=== PATIENT | male | born 1995 | race Caucasian/White ===

== ENCOUNTER 2017-07-18 15:14 | Emergency (ER) | payer OTHER ==
[~2017-07-18] VITALS: Ht 172.7 cm; Wt 51.8 kg
[2017-07-18 15:17] VITALS: TEMP 37.4; Ht 172.7 cm; Wt 51.8 kg
[2017-07-18] MEDS ORDERED: KETOROLAC TROMETHAMINE 30 MG/ML VIAL IV STA (15:38)
[2017-07-18 15:41] VITALS: O2SAT 98
--- NOTE | 2017-07-18 16:05 | DIAGNOSTIC IMAGING REPORT ---
CHEST ONE VIEW PORTABLE CLINICAL HISTORY: 21 years-old Male presenting with chest pain. TECHNIQUE: Portable upright AP view of the chest was obtained. COMPARISON: None. FINDINGS: Cardiomediastinal silhouette normal. Lungs and pleural spaces clear. Osseous structures normal. Upper abdomen normal. IMPRESSION: 1. No acute cardiopulmonary disease. Electronically signed by: Jean-Claude Collins M.D. 07/18/2017 4:04 PM Dictated Date/Time: 07/18/2017 4:03 PM
[2017-07-18 16:16] LABS: BASO % 0.1 %; BASO ABS # 0.01 K/uL (0-0.2); COMPLETE YES; EOS % 0.5 %; IG% 0.2 %; LYMPH % 9.6 %; LYMPH ABS # 0.93 K/uL (1.2-3.4); MEAN CELL VOLUME 86.3 fL (80-100); MEAN CORPUSCULAR HEMOGLOBIN 29.9 pg (25-34); MEAN CORPUSCULAR HGB CONC 34.6 g/dl (32-36); MEAN PLATELET VOLUME 9.9 fL (7.4-10.4); MONO % 8.9 %; NEUT % 80.7 %; PLATELET COUNT 170 K/uL (130-400); RED BLOOD COUNT 5.56 M/uL (4.7-6.1); WHITE BLOOD COUNT 9.69 K/uL (4.8-10.8)
[2017-07-18 16:37] LABS: ALT/SGPT 19 U/L (12-78); AST/SGOT 10 U/L (15-37); BLOOD UREA NITROGEN 13 mg/dl (7-18); BUN/CREATININE RATIO 14.7 (10-20); CALCIUM 9.3 mg/dl (8.5-10.1); CARBON DIOXIDE 28 mmol/L (21-32); CHLORIDE 100 mmol/L (98-107); CREATININE 0.86 mg/dl (0.60-1.40); GLUCOSE 101 mg/dl (70-99); SODIUM 134 mmol/L (136-145)
[2017-07-18 16:42] LABS: ALKALINE PHOSPHATASE 94 U/L (45-117)
[2017-07-18 17:30] VITALS: BP 126/66; PULSE 76; O2SAT 96
--- NOTE | 2017-07-18 19:02 | EMERGENCY ROOM VISIT NOTE ---
History Report prepared by Yi: Moncho Colin Under the Supervision of: Dr. Luis Rendon D.O. First contact with patient: 15:21 Chief Complaint: RESPIRATORY PROBLEMS Stated Complaint: CHEST PAIN, CAN'T BREATHE RT LUNG IN PAIN History of Present Illness The patient is a 21 year old male who presents to the Emergency Room with complaints of right sided rib pain that began last night. His pain worsens significantly with breathing. He states that his pain would not be present if he did not need to breathe. Although his pain started last night, it worsened significantly when he woke up this morning. His pain is also radiating into his shoulder and back. This has never happened to him before. Pt denies trauma, injury, headache, cough, change in vision, fevers, shortness of breath, abdominal pain, nausea, vomiting, diarrhea, pain with urination, and melena. His pain does not change with eating or drinking. Patient denies diabetes, hypertension, hyperlipidemia, CAD, history of sudden at a young age, and smoking. Patient denies swelling of calves, recent trips, history of immobilization or recent surgery, prior history of DVT, hemoptysis, history of malignancy, or past history of smoking. He denies any medical problems or known allergies to medications. Source of History: patient Onset: last night Position: chest (right) Symptom Intensity: moderate Quality: sharp Timing: worsening Modifying Factors (Worsening): breathing Associated Symptoms: No fevers, No headache, No sorethroat, No cough, No SOB , No nausea, No vomiting, No abdominal pain, No melena, No diarrhea, No urinary symptoms Note: His pain radiates into his right shoulder and back. Review of Systems See HPI for pertinent positives & negatives. A total of 10 systems reviewed and were otherwise negative. Past Medical & Surgical Medical Problems: (1) No Known Active Medical Problems Family History Patient reports no known family medical history. Social History Smoking Status: Never Smoker Smokeless Tobacco Use: No Drug Use: none Marital Status: single Housing Status: lives with roommate Occupation Status: student Current/Historical Medications No Active Prescriptions or Reported Meds Allergies Coded Allergies: No Known Allergies (Unverified , 07/18/17) Physical Exam Vital Signs Date Time Temp Pulse Resp B/P (MAP) Pulse Ox O2 Delivery O2 Flow Rate FiO2 07/18/17 17:30 76 18 126/66 96 07/18/17 16:47 88 18 151/76 99 Room Air 07/18/17 16:25 70 07/18/17 15:41 98 Room Air 07/18/17 15:38 96 Room Air 07/18/17 15:17 37.4 94 18 161/94 97 Room Air Physical Exam GENERAL: Sitting up in bed holding right lower chest, alert, well appearing, well nourished, minimal distress, non-toxic EYE EXAM: normal conjunctiva. OROPHARYNX: no exudate, no erythema, lips, buccal mucosa, and tongue normal and mucous membranes are moist NECK: supple, no nuchal rigidity, no adenopathy, non-tender LUNGS: Clear to auscultation. Normal chest wall mechanics HEART: no murmurs, S1 normal and S2 normal CHEST: Reproducible right anterior chest wall pain. No rashes. Skin is intact. ABDOMEN: abdomen soft, non-tender, normo-active bowel sounds, no masses, no rebound or guarding. BACK: Back is symmetrical on inspection and there is no deformity, no midline tenderness, no CVA tenderness. SKIN: no rashes and no bruising UPPER EXTREMITIES: upper extremities are grossly normal. Radial pulses equal bilaterally. LOWER EXTREMITIES: Calves equal bilaterally. NEURO EXAM: Normal sensorium, cranial nerves II-XII grossly intact, normal speech, no gross weakness of arms, no gross weakness of legs. Medical Decision & Procedures ER Provider Diagnostic Interpretation: Radiology results as stated below per my review and the radiologist's interpretation: CHEST ONE VIEW PORTABLE CLINICAL HISTORY: 21 years-old Male presenting with chest pain. TECHNIQUE: Portable upright AP view of the chest was obtained. COMPARISON: None. FINDINGS: Cardiomediastinal silhouette normal. Lungs and pleural spaces clear. Osseous structures normal. Upper abdomen normal. IMPRESSION: 1. No acute cardiopulmonary disease. Electronically signed by: Jean-Claude Collins M.D. 07/18/2017 4:04 PM Dictated Date/Time: 07/18/2017 4:03 PM Laboratory Results 07/18/17 15:48 Red Blood Count 5.56, Mean Corpuscular Volume 86.3, Mean Corpuscular Hemoglobin 29.9, Mean Corpuscular Hemoglobin Concent 34.6, Mean Platelet Volume 9.9, Neutrophils (%) (Auto) 80.7, Lymphocytes (%) (Auto) 9.6, Monocytes (%) (Auto) 8.9, Eosinophils (%) (Auto) 0.5, Basophils (%) (Auto) 0.1, Neutrophils # (Auto) 7.82, Lymphocytes # (Auto) 0.93, Monocytes # (Auto) 0.86, Eosinophils # (Auto) 0.05, Basophils # (Auto) 0.01 07/18/17 15:48 Test 07/18/17 15:48 White Blood Count 9.69 K/uL (4.8-10.8) Red Blood Count 5.56 M/uL (4.7-6.1) Hemoglobin 16.6 g/dL (14.0-18.0) Hematocrit 48.0 % (42-52) Mean Corpuscular Volume 86.3 fL (80-100) Mean Corpuscular Hemoglobin 29.9 pg (25-34) Mean Corpuscular Hemoglobin Concent 34.6 g/dl (32-36) Platelet Count 170 K/uL (130-400) Mean Platelet Volume 9.9 fL (7.4-10.4) Neutrophils (%) (Auto) 80.7 % Lymphocytes (%) (Auto) 9.6 % Monocytes (%) (Auto) 8.9 % Eosinophils (%) (Auto) 0.5 % Basophils (%) (Auto) 0.1 % Neutrophils # (Auto) 7.82 K/uL (1.4-6.5) Lymphocytes # (Auto) 0.93 K/uL (1.2-3.4) Monocytes # (Auto) 0.86 K/uL (0.11-0.59) Eosinophils # (Auto) 0.05 K/uL (0-0.5) Basophils # (Auto) 0.01 K/uL (0-0.2) RDW Standard Deviation 40.8 fL (36.4-46.3) RDW Coefficient of Variation 12.8 % (11.5-14.5) Immature Granulocyte % (Auto) 0.2 % Immature Granulocyte # (Auto) 0.02 K/uL (0.00-0.02) D-Dimer < 190 ug/L FEU (0-500) Anion Gap 6.0 mmol/L (3-11) Est Creatinine Clear Calc Drug Dose 101.2 ml/min Estimated GFR () 145.7 Estimated GFR (Non- 125.7 BUN/Creatinine Ratio 14.7 (10-20) Calcium Level 9.3 mg/dl (8.5-10.1) Total Bilirubin 1.0 mg/dl (0.2-1) Direct Bilirubin 0.2 mg/dl (0-0.2) Aspartate Amino Transf (AST/SGOT) 10 U/L (15-37) Alanine Aminotransferase (ALT/SGPT) 19 U/L (12-78) Alkaline Phosphatase 94 U/L (45-117) Troponin I < 0.015 ng/ml (0-0.045) Total Protein 8.5 gm/dl (6.4-8.2) Albumin 4.8 gm/dl (3.4-5.0) Lipase 100 U/L (73-393) Laboratory results per my review. Medications Administered Medications (Trade) Dose Ordered Sig/Kt Route Start Time Stop Time Status Last Admin Dose Admin Ketorolac Tromethamine (Toradol Inj) 30 mg NOW STAT IV 07/18/17 15:38 07/18/17 15:39 DC 07/18/17 15:38 30 MG ECG Indication: chest pain Rate (beats per minute): 71 Rhythm: sinus rhythm Findings: RBBB (incomplete), T-wave inversion (Septal), other (normal axis) ED Course ED COURSE: Vital signs were reviewed and showed normal hypertension. The patients medical record was reviewed The above diagnostic studies were performed and reviewed. ED treatments and interventions as stated above. 1521: The patient was evaluated in room C10. A complete history and physical examination was performed. 1538: Ordered Toradol Inj 30 mg IV 1708: Upon reevaluation, the patient is resting. I discussed my findings with the patient and he understands and agrees with the treatment plan. Based on the patients age, coexisting illnesses, exam and lab findings the decision to treat as an outpatient was made. The patient remained stable while under my care. The patient appeared well at the time of discharge. Medical Decision Differential diagnoses includes but is not limited to acute coronary syndrome, myocardial infarction, pericarditis, pulmonary embolus, aortic dissection, pneumonia, pneumothorax, musculoskeletal, shingles, esophageal. Patient is a 21-year-old male who presents to ER with right sided chest pain which is worse with breathing. This started last night. No PE risk factors with the exception of driving to [place]. Denies any history of diabetes, hypertension, hyperlipidemia, CAD or sudden in his family at early age. Pain is reproducible. Chest x-ray unremarkable. EKG shows no acute ischemia. Troponin negative with pain greater than 8 hours. D-dimer negative and a low risk patient. Pain slightly improved with Toradol. Labs were negative as well and he had no abdominal pain. He was updated bedside and discharged with pleuritic right-sided chest pain. Discussed with Pt concerning signs and symptoms to watch out for. Pt was instructed to follow up with their PCP and discussed with the patient their option to return to the ED at anytime for persistent or worsening symptoms. The appropriate anticipatory guidance and out- patient management, including indications for return to the emergency department , were explained at length to the patient and understood. Medication Reconcilliation Current Medication List: was personally reviewed by me Blood Pressure Screening Patient's blood pressure: Elevated blood pressure Blood pressure disposition: Elevated BP felt to be situational Impression Primary Impression: Chest pain Scribe Attestation The scribe's documentation has been prepared under my direction and personally reviewed by me in its entirety. I confirm that the note above accurately reflects all work, treatment, procedures, and medical decision making performed by me. Departure Information Dispostion Home / Self-Care Prescriptions No Active Prescriptions or Reported Meds Referrals No Doctor, Assigned (PCP) Forms HOME CARE DOCUMENTATION FORM, IMPORTANT VISIT INFORMATION, WORK / SCHOOL INSTRUCTIONS Patient Instructions Chest Pain - [facility], ED Chest Pain NonCardiac, [facility] Additional Instructions Please follow up with your primary care doctor with in the next 24 hours. Any worsening of your symptoms, please return to the ED immediately. This includes any fevers greater than 100.4, worsening pain, chest pain, shortness breath, persistent nausea, vomiting, unable to eat or drink, or any other concerning signs or symptoms from your standpoint. Please take Motrin or Tylenol as needed for pain. Problem Qualifiers Primary Impression: Chest pain Chest pain type: unspecified Qualified Codes: R07.9 - Chest pain, unspecified
== END 2017-07-18 17:30 | disposition home or self-care (01) ==
LOC: C.EDB 15:15 → C.EDC 17:30
DX: R07.9 Chest pain, unspecified (principal); I45.10 Unspecified right bundle-branch block